=== PATIENT | male | born 1990 | race African-American/Black ===

== ENCOUNTER → 2019-08-29 | Emergency (ER) | payer MEDICAID, OTHER ==
[~2019-08-29] VITALS: Ht 182.9 cm; Wt 72.6 kg
[2019-08-29 09:53] VITALS: BP 113/71
== END | disposition home or self-care (01) ==
LOC: ER 09:40
DX: Z48.01 Encounter for change or removal of surgical wound dressing (principal)
CPT/HCPCS: 71045